=== PATIENT | male | born 1950 | race Caucasian/White ===

== ENCOUNTER 2018-01-12 08:53 | Day surgery (SDC) | payer BC ==
[~2018-01-12 08:53] MED LIST: ADVODART OR; AMLOD/BENAZP1 CA2 PO; AMLODIPINE5 MG PO; AMOXICILLIN500 MG PO; ANTIVERT12.5 MG PO; ASPIRIN LOW DOS81 M2 PO; AUGMENTIN875TAB PO; AVALIDE1 TA2 OR; AVALIDE1 TA2 PO; AVALIDE1 TAB OR; AVAPRO PO; AVAPRO300 MG; AVAPRO300 MG OR; AVAPRO300 MG PO; AVODART0.5 MG OR; AVODART0.5 MG PO; BABY ASPIRIN81 MG OR; BAYER ASA325 MG OR; BYETTA10 MCG SC; BYETTA10 SC; CADUET5 MG/10 MG OR; CIPRO XR500 M2 PO; COSAMIN DS1 CA1 PO; COSAMIN DS1 TAB OR; CRESTOR10 MG PO; CRESTOR5 MG OR; CRESTOR5 MG PO; ELIMITE60 GM EX; FARXIGA10 MG PO; FARXIGA5 MG PO; FISH OIL1000 MG OR; FLOMAX0.4 M1 PO; FLONASE NASAL50 MCG; FLUZONE SPLT1 M1 IM; FLUZONE1 M1 IM; GLIMEPIRIDE2 MG PO; GLIMEPIRIDE4 MG PO; GLUCOSAMINE1 TAB OR; HYDROCHLOR12.5 MG/CA PO; HYDROCHLOROT25 MG PO; IBUPROFEN800 MG PO; INFANRIX IM; K-DUR/KLOR-CON10 MEQ OR; KLOR-CON 1010 ME1 PO; LOPRESSOR50 MG OR; LORTAB 7.5 PO; LOTREL1 CA1 PO; MECLIZINE12.5 MG OR; METAN1 OR; METFORMIN1000 MG OR; METFORMIN1000 MG PO; METFORMIN500 MG PO; METOPROL TAR25 MG PO; METOPROLOL50 M1 OR; MULT VITAMIN OR; MULTIVITAM10 OR; MULTIVITAMI9 PO; NITROSTAT0.4 MG SL; NORVASC5 MG PO; PERCOCET 5/325M1 TAB PO; PHENERGAN12.5 MG/TA PO; POTASSIUM CHLO10 ME4 PO; POTASSIUM CHLO10 MEQ PO; PROSTATE SR OR; PROSTATE SR PO; SAW PALMETTO OR; SPIRONO/HCTZ; TESSALON PER100 MG PO; VICTOZA18 MG/3 ML SC
[2018-01-12 12:52] VITALS: BP 132/86
== END 2018-01-12 13:10 | disposition home or self-care (01) | DRG 951 ==
LOC: ENDO 08:53
PROVIDERS: ATTEND Surgery
PROC: 0DBL8ZX Excision of Transverse Colon, Via Natural or Artificial Opening Endoscopic, Diagnostic (ICD-10-PCS; principal; 2018-01-12)
PROC: 3E0H8KZ Introduction of Other Diagnostic Substance into Lower GI, Via Natural or Artificial Opening Endoscopic (ICD-10-PCS; 2018-01-12)
DX: Z12.11 Encounter for screening for malignant neoplasm of colon (principal); K63.5 Polyp of colon; I10 Essential (primary) hypertension; E11.9 Type 2 diabetes mellitus without complications; E78.5 Hyperlipidemia, unspecified; N40.0 Benign prostatic hyperplasia without lower urinary tract symptoms; Z80.0 Family history of malignant neoplasm of digestive organs

== ENCOUNTER 2018-03-30 08:43 | Day surgery (SDC) | payer BC ==
[~2018-03-30] VITALS: Ht 170.2 cm; Wt 113.4 kg
[~2018-03-30 08:43] MED LIST changes: +ASPIRIN LOW DOS81 M1 PO; -ASPIRIN LOW DOS81 M2 PO; +PIOGLITAZONE HC15 MG PO
[2018-03-30 13:13] VITALS: BP 136/77
== END 2018-03-30 12:15 | disposition home or self-care (01) | DRG 387 ==
LOC: ENDO 08:43 → ORM 10:15 → ENDO 10:15
PROVIDERS: ATTEND Surgery
PROC: 0DBK8ZX Excision of Ascending Colon, Via Natural or Artificial Opening Endoscopic, Diagnostic (ICD-10-PCS; principal; 2018-03-30)
PROC: 0DBL8ZX Excision of Transverse Colon, Via Natural or Artificial Opening Endoscopic, Diagnostic (ICD-10-PCS; 2018-03-30)
PROC: 3E0H8KZ Introduction of Other Diagnostic Substance into Lower GI, Via Natural or Artificial Opening Endoscopic (ICD-10-PCS; 2018-03-30)
DX: K51.40 Inflammatory polyps of colon without complications (principal); D12.2 Benign neoplasm of ascending colon; I10 Essential (primary) hypertension; E11.9 Type 2 diabetes mellitus without complications; E78.5 Hyperlipidemia, unspecified

== ENCOUNTER 2018-06-25 09:36 | Emergency (ER) | payer BC ==
[~2018-06-25] VITALS: Ht 170.2 cm; Wt 100.0 kg
[2018-06-25] MEDS ORDERED: KLOR-CON 1010 MEQ PO (11:26)
[2018-06-25] MEDS ORDERED: PIOGLITAZONE HC45 MG PO (11:26)
[2018-06-25] MEDS ORDERED: HYDROCHLOROT12.5 M1 PO (11:27)
[2018-06-25] MEDS ORDERED: GLIMEPIRIDE4 MG PO (11:29)
[2018-06-25] MEDS ORDERED: FARXIGA10 MG PO (11:35)
[2018-06-25] MEDS ORDERED: AVAPRO300 MG PO (11:35)
[2018-06-25] MEDS ORDERED: CRESTOR10 MG PO (11:36)
[2018-06-25 11:45] VITALS: BP 151/78
== END 2018-06-25 11:45 | disposition home or self-care (01) | DRG 563 ==
LOC: ED 09:36
DX: S86.912A Strain of unspecified muscle(s) and tendon(s) at lower leg level, left leg, initial encounter (principal); E11.9 Type 2 diabetes mellitus without complications; I10 Essential (primary) hypertension; F17.220 Nicotine dependence, chewing tobacco, uncomplicated; X50.0XXA Overexertion from strenuous movement or load, initial encounter

== ENCOUNTER 2018-09-12 16:53 | Emergency (ER) | payer BC ==
[~2018-09-12] VITALS: Ht 170.2 cm; Wt 110.0 kg
[~2018-09-12 16:53] MED LIST changes: +HYDROCHLOROT12.5 M1 PO; +KLOR-CON 1010 MEQ PO; +PIOGLITAZONE HC45 MG PO
[2018-09-12 17:47] LABS: HEMATOCRIT 40.7 % (39.0-50.0); HEMOGLOBIN 13.5 g/dl (14.0-18.0); IMMATURE GRANULOCYTES 0.6 % (0.0-5.0); MEAN CELL VOLUME 87.2 fL CALC (80.0-100.0); MEAN CORPUSCULAR HGB 28.9 pG CALC (26.0-32.0); MEAN CORPUSCULAR HGB CONC 33.2 g/L CALC (32.0-36.0); NEUT# 7.71 thou/uL (1.82-7.42); RED BLOOD COUNT 4.67 mill/uL (4.70-6.10); RED CELL DISTRI WIDTH 13.9 % (11.5-15.5)
[2018-09-12 17:55] LABS: ALBUMIN 4.5 g/dL (3.2-5.0); ALKALINE PHOSPHATASE 85 u/l (38-126); ANION GAP 17 (6-22 (CALC)); BILIRUBIN, TOTAL 0.5 mg/dL (0.0-1.4); BUN 12 mg/dL (8-23); BUN/CREATININE RATIO 23 (12-20 (CALC)); CARBON DIOXIDE 26 mmol/l (22-30); CHLORIDE 104 mmol/l (95-108); CREATININE 0.5 mg/dL (0.7-1.3); GFR > 60 ML/MIN (>=60 (CALC)); GFR FOR AFR.AMER. > 60 ML/MIN (>=60 (CALC)); LIPASE 135 u/l (23-300); POTASSIUM 3.5 mmol/l (3.5-5.1); SGOT/AST 15 u/l (19-48); SODIUM 143 mmol/l (137-146); TOTAL PROTEIN 7.3 g/dL (6.3-8.2)
[2018-09-12] MEDS ORDERED: NITROGLYCER0.4 MG PO (18:14)
[2018-09-12] MEDS ORDERED: ASPIRIN81 MG PO (18:14)
[2018-09-12] MEDS ORDERED: [UNRECOGNIZED DRUG - OTHER] PO (18:15)
[2018-09-12] MEDS ORDERED: FLOVENT DI50 MCG/BLI IN (18:17)
[2018-09-12] MEDS ORDERED: CRESTOR10 MG PO (18:17)
[2018-09-12] MEDS ORDERED: METFORMIN500 MG PO (18:18)
[2018-09-12 18:44] LABS: URINE BILIRUBIN - DIPSTICK NEGATIVE (NEGATIVE); URINE BLOOD DIPSTICK NEGATIVE (NEGATIVE); URINE COLOR YELLOW; URINE GLUCOSE - DIPSTICK >=1000 mg/dL (NEGATIVE); URINE KETONE NEGATIVE (NEGATIVE); URINE LEUK ESTERASE NEGATIVE (NEGATIVE); URINE NITRITE - DIPSTICK NEGATIVE (Negative); URINE PH 5.5 (4.5-8.0); URINE PROTEIN - DIPSTICK NEGATIVE (NEG-TRACE); URINE UROBILINOGEN - DIPSTICK 0.2 E.U./dL (0.2)
[2018-09-12] MEDS ORDERED: METRONIDAZOL500 MG PO (19:27)
[2018-09-12] MEDS ORDERED: CIPROFLOXACN500 MG PO (19:27)
[2018-09-12] MEDS ORDERED: PHENERGAN25 MG/TAB PO (19:31)
[2018-09-12 19:49] VITALS: BP 137/69
== END 2018-09-12 19:50 | disposition home or self-care (01) | DRG 392 ==
LOC: ED 16:53
PROVIDERS: Family Medicine
DX: K57.32 Diverticulitis of large intestine without perforation or abscess without bleeding (principal); E11.9 Type 2 diabetes mellitus without complications; I10 Essential (primary) hypertension
CPT/HCPCS: Q9967

== ENCOUNTER 2019-01-04 02:27 | Observation (INO) | payer BC ==
[2019-01-04] VITALS (10 sets, daily range): BP systolic 100–120; BP diastolic 52–71
[~2019-01-04] VITALS: Ht 172.7 cm; Wt 114.8 kg
[~2019-01-04 02:27] MED LIST changes: +ASPIRIN81 MG PO; +CIPROFLOXACN500 MG PO; +FLOVENT DI50 MCG/BLI IN; +METRONIDAZOL500 MG PO; +NITROGLYCER0.4 MG PO; +PHENERGAN25 MG/TAB PO; +[UNRECOGNIZED DRUG - OTHER] PO
[2019-01-04] MEDS ORDERED: VICTOZA18 MG/3 ML SC (02:59)
[2019-01-04 03:00] LABS: HEMATOCRIT 38.8 % (39.0-50.0); HEMOGLOBIN 13.3 g/dl (14.0-18.0); IMMATURE GRANULOCYTES 0.4 % (0.0-5.0); MEAN CELL VOLUME 85.5 fL CALC (80.0-100.0); MEAN CORPUSCULAR HGB 29.3 pG CALC (26.0-32.0); MEAN CORPUSCULAR HGB CONC 34.3 g/L CALC (32.0-36.0); NEUT# 9.89 thou/uL (1.82-7.42); RED BLOOD COUNT 4.54 mill/uL (4.70-6.10); RED CELL DISTRI WIDTH 13.2 % (11.5-15.5)
[2019-01-04] MEDS ORDERED: [UNRECOGNIZED DRUG - CODE] PO (03:01)
[2019-01-04] MEDS ORDERED: B12 FAST DIS5000 MCG SL (03:02)
[2019-01-04] MEDS ORDERED: MAGNESIUM400 MG PO (03:03)
[2019-01-04] MEDS ORDERED: TRESIBA100 UNIT/M SC (03:04)
[2019-01-04 03:19] LABS: ALBUMIN 4.1 g/dL (3.2-5.0); ALKALINE PHOSPHATASE 89 u/l (38-126); AMYLASE 61 u/l (30-110); ANION GAP 15 (6-22 (CALC)); BILIRUBIN, TOTAL 0.5 mg/dL (0.0-1.4); BUN 20 mg/dL (8-23); BUN/CREATININE RATIO 26 (12-20 (CALC)); CARBON DIOXIDE 24 mmol/l (22-30); CHLORIDE 102 mmol/l (95-108); CREATININE 0.8 mg/dL (0.7-1.3); GFR > 60 ML/MIN (>=60 (CALC)); GFR FOR AFR.AMER. > 60 ML/MIN (>=60 (CALC)); LIPASE 186 u/l (23-300); POTASSIUM 3.6 mmol/l (3.5-5.1); SGOT/AST 19 u/l (19-48); SODIUM 137 mmol/l (137-146); TOTAL PROTEIN 7.1 g/dL (6.3-8.2)
[2019-01-04 03:31] LABS: MYOGLOBIN 39 ng/mL (0 - 121)
[2019-01-04 04:57] LABS: URINE BILIRUBIN - DIPSTICK NEGATIVE (NEGATIVE); URINE BLOOD DIPSTICK LARGE (NEGATIVE); URINE COLOR YELLOW; URINE GLUCOSE - DIPSTICK NEGATIVE (NEGATIVE); URINE KETONE NEGATIVE (NEGATIVE); URINE LEUK ESTERASE NEGATIVE (NEGATIVE); URINE NITRITE - DIPSTICK NEGATIVE (Negative); URINE PH 5.5 (4.5-8.0); URINE PROTEIN - DIPSTICK NEGATIVE (NEG-TRACE); URINE UROBILINOGEN - DIPSTICK 0.2 E.U./dL (0.2)
[2019-01-04 05:08] LABS: URINE BACTERIA RARE hpf; URINE HYALINE CAST RARE lpf (NONE-RARE)
[2019-01-05 05:06] VITALS: BP 134/79
[2019-01-05 08:19] VITALS: BP 139/73
[2019-01-05 08:21] VITALS: BP 139/73
[2019-01-05] MEDS ORDERED: TAMSULOSIN0.4 MG PO (10:40)
[2019-01-05] MEDS ORDERED: KEFLEX500 MG PO (10:40)
[2019-01-05] MEDS ORDERED: LORTAB5 PO (10:40)
[2019-01-05] MEDS ORDERED: DICYCLOMINE10 MG PO (10:40)
== END 2019-01-05 13:43 | disposition home or self-care (01) | DRG 661 ==
LOC: ED 02:27 → ED-I 02:45 → ED 02:45 → ED-I 05:06 → ED 05:20 → MS2 05:21
PROVIDERS: Emergency Medicine; ADMIT Internal Medicine; ATTEND Internal Medicine
PROC: 0T778DZ Dilation of Left Ureter with Intraluminal Device, Via Natural or Artificial Opening Endoscopic (ICD-10-PCS; principal; 2019-01-04)
PROC: BT1F1ZZ Fluoroscopy of Left Kidney, Ureter and Bladder using Low Osmolar Contrast (ICD-10-PCS; 2019-01-04)
DX: N13.2 Hydronephrosis with renal and ureteral calculous obstruction (principal); I10 Essential (primary) hypertension; E11.42 Type 2 diabetes mellitus with diabetic polyneuropathy; E66.9 Obesity, unspecified; Z68.38 Body mass index [BMI] 38.0-38.9, adult; Z87.891 Personal history of nicotine dependence; Z79.4 Long term (current) use of insulin; Z87.442 Personal history of urinary calculi
CPT/HCPCS: G0378; Q9967

== ENCOUNTER 2020-02-28 14:41 | Emergency (ER) | payer BC ==
[~2020-02-28] VITALS: Ht 172.7 cm; Wt 115.9 kg
[~2020-02-28 14:41] MED LIST changes: +B12 FAST DIS5000 MCG SL; +DICYCLOMINE10 MG PO; +KEFLEX500 MG PO; +LORTAB5 PO; +MAGNESIUM400 MG PO; +TAMSULOSIN0.4 MG PO; +TRESIBA100 UNIT/M SC; +[UNRECOGNIZED DRUG - CODE] PO
[2020-02-28] MEDS ORDERED: METFORMIN HCL1000 MG PO (15:51)
[2020-02-28] MEDS ORDERED: FUROSEMIDE20 MG PO (15:52)
[2020-02-28] MEDS ORDERED: AMLOD/BENAZP1 CA4 PO (15:52)
[2020-02-28] MEDS ORDERED: LOPRESSOR 550 MG/TAB PO (15:53)
[2020-02-28] MEDS ORDERED: K-DUR/KLOR-CON20 MEQ PO (15:53)
[2020-02-28 16:10] VITALS: BP 139/74
== END 2020-02-28 16:10 | disposition home or self-care (01) ==
LOC: ED 14:41
DX: S80.01XA Contusion of right knee, initial encounter (principal); I10 Essential (primary) hypertension; E11.9 Type 2 diabetes mellitus without complications; F17.200 Nicotine dependence, unspecified, uncomplicated; W01.0XXA Fall on same level from slipping, tripping and stumbling without subsequent striking against object, initial encounter; Y92.009 Unspecified place in unspecified non-institutional (private) residence as the place of occurrence of the external cause; Z79.4 Long term (current) use of insulin

== ENCOUNTER 2020-05-29 06:22 | Emergency (ER) | payer BC ==
[~2020-05-29] VITALS: Ht 172.7 cm; Wt 108.0 kg
[~2020-05-29 06:22] MED LIST changes: +AMLOD/BENAZP1 CA4 PO; +FUROSEMIDE20 MG PO; +K-DUR/KLOR-CON20 MEQ PO; +LOPRESSOR 550 MG/TAB PO; +METFORMIN HCL1000 MG PO
[2020-05-29] MEDS ORDERED: ISOSORB MONO30 MG PO (07:20)
[2020-05-29] MEDS ORDERED: ROSUVASTATIN CA10 MG PO (07:21)
[2020-05-29] MEDS ORDERED: DOXYCYCL HYC100 MG PO (07:22)
[2020-05-29] MEDS ORDERED: OZEMPIC2 MG/1.5 M IJ (07:23)
[2020-05-29 07:43] LABS: HEMATOCRIT 38.1 % (39.0-50.0); HEMOGLOBIN 11.8 g/dl (14.0-18.0); IMMATURE GRANULOCYTES 0.5 % (0.0-5.0); MEAN CELL VOLUME 83.4 fL CALC (80.0-100.0); MEAN CORPUSCULAR HGB 25.8 pG CALC (26.0-32.0); NEUT# 6.93 thou/uL (1.82-7.42); RED BLOOD COUNT 4.57 mill/uL (4.70-6.10); RED CELL DISTRI WIDTH 14.2 % (11.5-15.5)
[2020-05-29 07:57] LABS: ANION GAP 14 (6-22 (CALC)); BUN 14 mg/dL (8-23); BUN/CREATININE RATIO 25 (12-20 (CALC)); CARBON DIOXIDE 25 mmol/l (22-30); CHLORIDE 106 mmol/l (95-108); CREATININE 0.6 mg/dL (0.7-1.3); GFR > 60 ML/MIN (>=60 (CALC)); GFR FOR AFR.AMER. > 60 ML/MIN (>=60 (CALC)); POTASSIUM 4.2 mmol/l (3.5-5.1); SODIUM 141 mmol/l (137-146)
[2020-05-29 08:13] VITALS: BP 138/72
[2020-05-31] MEDS ORDERED: TRAMADOL HCL50 MG PO (10:59)
[2020-05-31] MEDS ORDERED: FAMOTIDINE20 M1 PO (11:04)
[2020-05-31] MEDS ORDERED: AZO BLADDER CON1 CAP PO (11:04)
== END 2020-05-29 08:15 | disposition home or self-care (01) | DRG 379 ==
LOC: ED 06:22
PROVIDERS: Family Medicine
DX: K92.1 Melena (principal); I10 Essential (primary) hypertension; E11.9 Type 2 diabetes mellitus without complications; F17.200 Nicotine dependence, unspecified, uncomplicated; Z79.4 Long term (current) use of insulin; Z79.82 Long term (current) use of aspirin

== ENCOUNTER 2022-05-02 18:52 | Emergency (ER) | payer MEDICARE ==
[~2022-05-02] VITALS: Ht 172.7 cm; Wt 100.0 kg
[~2022-05-02 18:52] MED LIST changes: +AZO BLADDER CON1 CAP PO; +DOXYCYCL HYC100 MG PO; +FAMOTIDINE20 M1 PO; +ISOSORB MONO30 MG PO; +OZEMPIC2 MG/1.5 M IJ; +ROSUVASTATIN CA10 MG PO; +TRAMADOL HCL50 MG PO
[2022-05-02 20:17] LABS: HEMATOCRIT 34.8 % (39.0-50.0); HEMOGLOBIN 11.6 g/dl (14.0-18.0); IMMATURE GRANULOCYTES 0.1 % (0.0-5.0); MEAN CELL VOLUME 83.5 fL CALC (80.0-100.0); MEAN CORPUSCULAR HGB 27.8 pG CALC (26.0-32.0); MEAN CORPUSCULAR HGB CONC 33.3 g/dL CAL (32.0-36.0); NEUT# 5.48 thou/uL (1.82-7.42); RED BLOOD COUNT 4.17 mill/uL (4.70-6.10); RED CELL DISTRI WIDTH 14.7 % (11.5-15.5)
[2022-05-02] MEDS ORDERED: LASIX 20 MG TAB20 MG PO (20:20)
[2022-05-02] MEDS ORDERED: ANORO ELLIPTA 61 AER IN (20:21)
[2022-05-02] MEDS ORDERED: ISOSORB MONO30 MG PO (20:21)
[2022-05-02] MEDS ORDERED: HUMALOG KW100 UNIT/M SC (20:27)
[2022-05-02 20:29] LABS: ALKALINE PHOSPHATASE 73 u/l (38-126); AMYLASE 84 u/l (30-110); ANION GAP 13 (6-22 (CALC)); BILIRUBIN, TOTAL 0.4 mg/dL (0.0-1.4); BUN 24 mg/dL (8-23); BUN/CREATININE RATIO 36 (12-20 (CALC)); CARBON DIOXIDE 24 mmol/l (22-30); CHLORIDE 107 mmol/l (95-108); CREATININE 0.7 mg/dL (0.7-1.3); GFR FOR AFR.AMER. > 60 ML/MIN (>=60 (CALC)); GFR OTHER RACES > 60 ML/MIN (>=60 (CALC)); LIPASE 108 u/l (23-300); POTASSIUM 3.7 mmol/l (3.5-5.1); SGOT/AST 21 u/l (19-48); SODIUM 140 mmol/l (137-146); TOTAL PROTEIN 6.7 g/dL (6.3-8.2)
[2022-05-02 20:32] LABS: PROTHROMBIN TIME 10.4 SECONDS (9.0-12.5)
[2022-05-02] MEDS ORDERED: BENAZEPRIL HYDR40 MG PO (20:47)
[2022-05-02] MEDS ORDERED: CRESTOR10 MG PO (20:48)
[2022-05-02] MEDS ORDERED: NORVASC PO (20:48)
[2022-05-02] MEDS ORDERED: COQ-10100 MG PO (20:51)
[2022-05-02] MEDS ORDERED: MAGNESIUM200 MG PO (20:52)
[2022-05-02] MEDS ORDERED: [UNRECOGNIZED DRUG - CODE] (20:54)
[2022-05-02] MEDS ORDERED: NITROGLYCERIN0.4 MG (20:56)
[2022-05-02] MEDS ORDERED: B-121000 MC6 PO (20:56)
[2022-05-02] MEDS ORDERED: FLONASE AL50 MCG/AC1 (20:57)
[2022-05-02] MEDS ORDERED: MOUNJARO5 MG (21:00)
[2022-05-03 00:43] VITALS: BP 158/89
== END 2022-05-03 00:35 | disposition short-term general hospital (02) ==
LOC: ED 18:52
PROVIDERS: Emergency Medicine
DX: K92.2 Gastrointestinal hemorrhage, unspecified (principal); I10 Essential (primary) hypertension; E11.9 Type 2 diabetes mellitus without complications; F17.200 Nicotine dependence, unspecified, uncomplicated; Z87.442 Personal history of urinary calculi; Z79.84 Long term (current) use of oral hypoglycemic drugs; Z79.4 Long term (current) use of insulin; Z20.822 Contact with and (suspected) exposure to COVID-19
CPT/HCPCS: Q9967; S0164

== ENCOUNTER 2022-12-30 08:48 | Day surgery (SDC) | payer MEDICARE ==
[~2022-12-30] VITALS: Ht 172.7 cm; Wt 98.0 kg
[~2022-12-30 08:48] MED LIST changes: +ANORO ELLIPTA 61 AER IN; +B-121000 MC6 PO; +BENAZEPRIL HYDR40 MG PO; +COQ-10100 MG PO; +FERROUS SULFAT325 MG PO; +FLONASE AL50 MCG/AC1; +HUMALOG KW100 UNIT/M SC; +LASIX 20 MG TAB20 MG PO; +MAGNESIUM200 MG PO; +MOUNJARO5 MG IJ; +NITROGLYCERIN0.4 MG; +NORMODYNE/TRAN100 MG PO; +NORVASC PO; +[UNRECOGNIZED DRUG - CODE]
[2022-12-30 11:03] VITALS: BP 124/78
== END 2022-12-30 11:15 | disposition home or self-care (01) ==
LOC: ORM 08:48
PROVIDERS: ATTEND Surgery
PROC: 0DBN8ZX Excision of Sigmoid Colon, Via Natural or Artificial Opening Endoscopic, Diagnostic (ICD-10-PCS; principal; 2022-12-30)
PROC: 0DB78ZX Excision of Stomach, Pylorus, Via Natural or Artificial Opening Endoscopic, Diagnostic (ICD-10-PCS; 2022-12-30)
DX: D50.9 Iron deficiency anemia, unspecified (principal); K63.5 Polyp of colon; K57.30 Diverticulosis of large intestine without perforation or abscess without bleeding; K29.50 Unspecified chronic gastritis without bleeding; I10 Essential (primary) hypertension; E11.9 Type 2 diabetes mellitus without complications; E78.5 Hyperlipidemia, unspecified; Z79.84 Long term (current) use of oral hypoglycemic drugs; Z86.010 Personal history of colon polyps; Z87.19 Personal history of other diseases of the digestive system

== ENCOUNTER 2024-07-31 12:28 | Inpatient (IN) | payer MEDICARE ==
[2024-07-31] VITALS (43 sets, daily range): BP systolic 91–158; BP diastolic 60–100
[~2024-07-31] VITALS: Ht 170.2 cm; Wt 94.6 kg
[~2024-07-31 12:28] MED LIST changes: +AMLODIPINE BESY10 MG PO; -FLONASE AL50 MCG/AC1; +FLONASE AL50 MCG/AC1 IH; +LABETALOL HYDR200 MG PO; -LASIX 20 MG TAB20 MG PO; +LASIX20 MG PO; -NORMODYNE/TRAN100 MG PO; -NORVASC PO; +TRESIBA FL200 UNIT/M SC; -TRESIBA100 UNIT/M SC
[2024-07-31] MEDS ORDERED: DILTIAZEM HCL 125 MG in SODIUM CHLORIDE 0.9% 100 ML IV ONE (12:50)
[2024-07-31] MEDS ORDERED: SODIUM CHLORIDE 0.9% 250 ML IV ONE (12:50)
[2024-07-31] MEDS ORDERED: dilTIAZem HCL 50 MG/10 ML SDV IV ONE (12:50)
[2024-07-31 13:01] LABS: BASO% 0.2 % (0-3); EOS% 1.4 % (0-8); HEMATOCRIT 38.3 % (39.0-50.0); IMMATURE GRANULOCYTES 0.3 % (0.0-5.0); LYMPH% 17.3 % (15-41); MEAN CELL VOLUME 88.7 fL CALC (80.0-100.0); MEAN CORPUSCULAR HGB 30.1 pG CALC (26.0-32.0); MEAN CORPUSCULAR HGB CONC 33.9 g/dL CAL (32.0-36.0); MONO% 7.3 % (2-13); NEUT# 8.34 thou/uL (1.82-7.42); NEUT% 73.5 % (42-76); RED BLOOD COUNT 4.32 mill/uL (4.70-6.10); RED CELL DISTRI WIDTH 13.2 % (11.5-15.5)
[2024-07-31 13:07] LABS: ALBUMIN 3.9 g/dL (3.2-5.0); ALKALINE PHOSPHATASE 61 u/l (38-126); ANION GAP 13 (6-22 (CALC)); BILIRUBIN, TOTAL 0.5 mg/dL (0.2-1.3); BUN 26 mg/dL (8-23); BUN/CREATININE RATIO 30 (12-20 (CALC)); CHLORIDE 111 mmol/l (95-108); CREATININE 0.9 mg/dL (0.7-1.3); ESTIMATED GFR 91 ML/MIN (>=90 (CALC)); MAGNESIUM 1.5 mg/dL (1.6-2.3); POTASSIUM 4.2 mmol/l (3.5-5.1); SGOT/AST 20 u/l (19-48); SODIUM 140 mmol/l (137-146); TOTAL PROTEIN 6.3 g/dL (6.3-8.2)
[2024-07-31 13:08] LABS: CARBON DIOXIDE 20 mmol/l (22-30)
[2024-07-31] MEDS ORDERED: MAGNESIUM SULFATE HEPTAHYDRATE 100 ML IV ONE (13:10)
[2024-07-31] MEDS ORDERED: AZITHROMYCIN 500 MG in SODIUM CHLORIDE 0.9% 500 ML IV ONE (14:35)
[2024-07-31] MEDS ORDERED: MAGNESIUM HYDROXIDE 30 ML UDC PO PRN (16:10)
[2024-07-31] MEDS ORDERED: Zaleplon 5 MG/CAP PO PRN (16:10)
[2024-07-31] MEDS ORDERED: ACETAMINOPHEN 325 MG/TAB PO PRN (16:10)
[2024-07-31] MEDS ORDERED: ISOSORBIDE MONONITRATE 30 MG TAB PO SCH (16:10)
[2024-07-31] MEDS ORDERED: DOXYCYCLINE HYCLATE 100 MG in SODIUM CHLORIDE 0.9% 100 ML IV SCH ×2 (16:15→17:00)
[2024-07-31] MEDS ORDERED: LABETALOL HCL 100 MG/TAB PO SCH (21:00)
[2024-07-31] MEDS ORDERED: APIXABAN BASE 5 MG TAB PO SCH (21:00)
[2024-08-01] VITALS (21 sets, daily range): BP systolic 106–150; BP diastolic 58–116
[2024-08-01 00:25] LABS: URINE BILIRUBIN - DIPSTICK Negative (NEGATIVE); URINE BLOOD DIPSTICK Negative (NEGATIVE); URINE COLOR Yellow; URINE GLUCOSE - DIPSTICK >=1000 mg/dL (NEGATIVE); URINE KETONE Trace mg/dL (NEGATIVE); URINE LEUK ESTERASE Small (NEGATIVE); URINE NITRITE - DIPSTICK Negative (Negative); URINE PROTEIN - DIPSTICK Negative (NEG-TRACE); URINE UROBILINOGEN - DIPSTICK 0.2 E.U./dL (0.2)
[2024-08-01 00:36] LABS: URINE BACTERIA FEW hpf; URINE WBC 50-100 WBC/hpf (0-5)
[2024-08-01 05:53] LABS: HEMATOCRIT 40.1 % (39.0-50.0); HEMOGLOBIN 13.3 g/dl (14.0-18.0); MEAN CELL VOLUME 90.5 fL CALC (80.0-100.0); MEAN CORPUSCULAR HGB CONC 33.2 g/dL CAL (32.0-36.0); RED BLOOD COUNT 4.43 mill/uL (4.70-6.10); RED CELL DISTRI WIDTH 13.3 % (11.5-15.5)
[2024-08-01 06:12] LABS: ALBUMIN 3.7 g/dL (3.2-5.0); BILIRUBIN, TOTAL 0.5 mg/dL (0.2-1.3); CREATININE 0.7 mg/dL (0.7-1.3); MAGNESIUM 1.8 mg/dL (1.6-2.3); POTASSIUM 4.1 mmol/l (3.5-5.1); TOTAL PROTEIN 6.2 g/dL (6.3-8.2)
[2024-08-01] MEDS ORDERED: DEXTROSE 250 ML IV PRN ×2 (08:45)
[2024-08-01] MEDS ORDERED: INSULIN GLARGINE 100 UNITS/ML SC SCH (09:00)
[2024-08-01] MEDS ORDERED: INSULIN LISPRO 100 UNITS/ML ML SC SCH (11:00)
[2024-08-01] MEDS ORDERED: MOUNJARO15 M1 SC (11:30)
[2024-08-01] MEDS ORDERED: SODIUM CHLORIDE 0.9% 250 ML IV PRN (12:25)
[2024-08-01] MEDS ORDERED: amioDARONE HCl 450 MG in SODIUM CHLORIDE 250 ML IV ONE (13:00)
[2024-08-01] MEDS ORDERED: DOXYCYCLINE HYCLATE 100 MG in SODIUM CHLORIDE 0.9% 100 ML IV SCH (17:00)
[2024-08-01] MEDS ORDERED: METOPROLOL TARTRATE 50 MG/TAB PO SCH (18:57)
[2024-08-02] VITALS (13 sets, daily range): BP systolic 91–163; BP diastolic 59–88
[2024-08-02 05:45] LABS: HEMATOCRIT 41.3 % (39.0-50.0); MEAN CELL VOLUME 89.8 fL CALC (80.0-100.0); MEAN CORPUSCULAR HGB 30.4 pG CALC (26.0-32.0); MEAN CORPUSCULAR HGB CONC 33.9 g/dL CAL (32.0-36.0); RED BLOOD COUNT 4.6 mill/uL (4.70-6.10); RED CELL DISTRI WIDTH 13.4 % (11.5-15.5)
[2024-08-02 06:02] LABS: ALBUMIN 3.8 g/dL (3.2-5.0); CREATININE 0.6 mg/dL (0.7-1.3); MAGNESIUM 1.7 mg/dL (1.6-2.3); POTASSIUM 3.9 mmol/l (3.5-5.1); TOTAL PROTEIN 6.4 g/dL (6.3-8.2)
[2024-08-02 06:03] LABS: BILIRUBIN, TOTAL 0.8 mg/dL (0.2-1.3)
[2024-08-02] MEDS ORDERED: ELIQUIS5 MG PO (12:26)
[2024-08-02] MEDS ORDERED: TOPROL XL50 MG PO (12:28)
[2024-08-02] MEDS ORDERED: FLECAINIDE50 MG PO (12:28)
[2024-08-02] MEDS ORDERED: OMNICEF300 MG PO (12:31)
[2024-08-02] MEDS ORDERED: FLECAINIDE ACETATE 50 MG TAB PO SCH (13:00)
== END 2024-08-02 13:10 | disposition home or self-care (01) | DRG 308 ==
LOC: ED 12:28 → ED-I 14:30 → ED 14:45 → ED-I 14:45
PROVIDERS: Nurse Practitioner; ADMIT Internal Medicine; ATTEND Internal Medicine
DX: I48.91 Unspecified atrial fibrillation (principal); J18.9 Pneumonia, unspecified organism; J44.0 Chronic obstructive pulmonary disease with (acute) lower respiratory infection; I10 Essential (primary) hypertension; I27.29 Other secondary pulmonary hypertension; E78.5 Hyperlipidemia, unspecified; E11.42 Type 2 diabetes mellitus with diabetic polyneuropathy; N40.0 Benign prostatic hyperplasia without lower urinary tract symptoms; E66.9 Obesity, unspecified; G47.33 Obstructive sleep apnea (adult) (pediatric); R82.71 Bacteriuria; Z79.4 Long term (current) use of insulin; Z79.84 Long term (current) use of oral hypoglycemic drugs; Z87.891 Personal history of nicotine dependence
CPT/HCPCS: J0282; J0456; J0696; J1815; J3475